=== PATIENT | male | born 2000 | race Two or more races ===

== ENCOUNTER 2025-05-11 18:11 | Emergency (ER) | payer OTHER ==
[~2025-05-11] VITALS: Ht 185.4 cm; Wt 102.0 kg
[2025-05-11 20:02] VITALS: BP 148/91; PULSE 67; RESP 18; TEMP 97.9; O2SAT 95
[2025-05-11] MEDS: TETRACAINE HCL 0.5% OPTH(EYE) SOLN 4ML RIGHTEYE ONE (20:21)
[2025-05-11] MEDS: FLUORESCEIN SOD OPTH TEST STRIP RIGHTEYE ONE (20:21)
--- NOTE | 2025-05-11 20:43 | ED.PDOC ---
Eye-HPI HPI Comments 25 year old male presents to ER with right eye complaint x 1 day. Patient states that a "panel popper tool" hit him in his right upper eyelid at 2:45 p.m. prior to arrival to ER when he was using the tool to take a part off a car and has since been experiencing 3/10 pain to right upper eyelid and redness to right eye. He denies the tool poking him in his eye and denies any blurred vision/vision changes to right eye. Patient presents to ER ambulatory on a rrival, with steady gait, with a 1cm abrasion noted to right upper eyelid without bleeding and subconjunctival injection noted to right eye. Denies any further symptoms/complaints Chief Complaint: Eye Problem Time Seen by MD: 19:12 Primary Care Provider: NONE Reviewed Notes: Nurses Notes, Medications, Allergies Allergies: Coded Allergies: Amoxicillin (Verified Allergy, Unknown, 05/11/25) Home Meds Active Scripts Erythromycin (Erythromycin) 5 Mg/Gm Oin, 1 MG OP 6XD for 7 Days, #1 OIN 0 Refills Prov:IVAN ROWAN 05/11/25 Information Source: Patient Mode of Arrival: Ambulatory Past Medical History PAST MEDICAL HISTORY: Denies Surgical History: Denies all surgeries Family History Family History: Unknown Social History Smoker: Non-Smoker Alcohol: Denies ETOH Use Drugs: Denies Drug Use Lives In: Home Constitutional: denies: chills, diaphoresis, fatigue, fever, malaise, sweats, weakness, others EENTM: reports: others (As stated in HPI) Respiratory: denies: cough, hemoptysis, orthopnea, SOB at rest, shortness of breath, SOB with excertion, stridor, wheezing, others Cardiovascular: denies: chest pain, dizzy spells, diaphoresis, Dyspnea on exertion, edema, irregular heart beat, left arm pain, lightheadedness, palpitations, PND, syncope, others Gastrointestinal: denies: abdomen distended, abdominal pain, blood streaked bowels, constipated, diarrhea, dysphagia, difficulty swallowing, hematemesis, m felice, nausea, poor appetite, poor fluid intake, rectal bleeding, rectal pain, vomiting, others Genitourinary: denies: burning, dysuria, flank pain, frequency, hematuria, incontinence, penile discharge, penile sore, pain, testicle pain, testicle swelling, urgency, others Neurological: denies: dizziness, fainting, headache, left sided numbness, left sided weakness, numbness, paresthesia, pre-existing deficit, right sided numbness, right sided weakness, seizure, speech problems, tingling, tremors, weakness, others Musculoskeletal: denies: back pain, gout, joint pain, joint swelling, muscle pain, muscle stiffness, neck pain, others Integumetry: reports: others (As stated in HPI) Allergic/Immunocompromised: denies: Difficulty Healing, Frequent Infections, Hives, Itching, others Hematologic/Lymphatic: denies: anemia, blood clots, easy bleeding, easy bruising, swollen glands, others Endocrine: denies: excessive hunger, excessive sweating, excessive thirst, excessive urination, flushing, intolerance to cold, intolerance to heat, unexplained weight gain, unexplained weight loss, others Psychiatric: denies: anxiety, bipolar disorder, depression, hopeless, panic disorder, schizophrenia, sleepless, suicidal, others Physical Exam General Appearance: No Apparent Distress HEENT: PERRL/EOMI, Pharynx Normal, TMs Normal, Other ([place] examination right eye- subconjunctival injection and corneal abrasion noted, no drainage from right eye appreciated. 1 cm abrasion also noted to right upper eyelid without bleeding. Visual acuity 20/25 right eye, 20/25 left eye and 20/20 using both eyes) Neck: Full Range of Motion, Non-Tender, Normal Respiratory: Chest Non-Tender, Lungs Clear, No Accessory Muscle Use, No Respiratory Distress, Normal Breath Sounds Cardiovascular: No Murmur, No Gallop, Regular Rate/Rhythm Breast Exam: Deferred Gastrointestinal: NOT DONE Genitalia: Deferred Pelvic: Deferred Rectal: Deferred Extremities: Normal capillary refill, Normal range of motion Neurologic: Alert, senior project engineer II-XII nml as Tested, No Motor Deficits, Normal Affect, Normal Mood, No Sensory Deficits Cerebellar Function: Normal Reflexes: Normal Skin: Dry, Warm Lymphatic: No Adenopathy Was a procedure done? Was a procedure done?: No Sedation Sedation?: No EENT DIFF Eye: Corneal Ulceration, Foreign Body-Corneal, Globe Rupture, Orbital Cellulits, Periorbital Cellulits X-Ray, Labs, Meds, VS Vital Signs Date Time Temp Pulse Resp B/P (MAP) Pulse Ox O2 Delivery O2 Flow Rate FiO2 05/11/25 20:02 Room Air* 0 21 05/11/25 20:02 97.9 67 18 148/91 (110) 95 97.9 05/11/25 19:10 97.9 67 18 148/91 (110) 95 97.9 Current Medications Medications (Trade) Dose Ordered Sig/Brian Route Start Time Stop Time Status Last Admin Fluorescein Sodium (Ful-Yuko) 1 mg ONCE ONCE RIGHTEYE 05/11/25 20:15 05/11/25 20:17 DC 05/11/25 20:21 Tetracaine HCl (Tetracaine 0.5% Opth Soln) 1 drop ONCE ONCE RIGHTEYE 05/11/25 20:15 05/11/25 20:17 DC 05/11/25 20:21 Fluorescein stain ophthalmic ordered Tetracaine ophthalmic ordered Workman's comp paperwork filled out Advised to follow up with Ophthalmology in 3-4 days if symptoms do not improve Advised to follow up with PCP and workman's comp PCP in 1-2 days Patient verbalized understanding and agreeable with current plan of care Advised to return to ER immediately if symptoms worsen Time of 1ST Reevaluation: 20:20 Reevaluation 1ST: N/A Patient Education/Counseling: Diagnosis, Treatment, Prognosis, Need For Follow Up Family Education/Counseling: No Family Present SEPSIS Sepsis Screen Date sepsis recognized/suspect: May 11, 2025 Time Sepsis recognized/suspect: 1642 Recent Procedure: No On Antibiotic Therapy: No Respiratory Rate >20: No Heart Rate >90: No Temp<36 C (96.8 F) or >38.3 C: No SBP <90 or MAP <65 mmHG: No New Acute Mental Status Change: No Is the patient on CPAP, BIPAP,: No Orders/Vitals/Labs Vital Signs Date Time Temp Pulse Resp B/P (MAP) Pulse Ox O2 Delivery O2 Flow Rate FiO2 05/11/25 20:02 Room Air* 0 21 05/11/25 20:02 97.9 67 18 148/91 (110) 95 97.9 05/11/25 19:10 97.9 67 18 148/91 (110) 95 97.9 Medications Medications Dose Ordered Sig/Brian Route Start Time Stop Time Status Last Admin Dose Admin Fluorescein Sodium 1 mg ONCE ONCE RIGHTEYE 05/11/25 20:15 05/11/25 20:17 DC 05/11/25 20:21 Tetracaine HCl 1 drop ONCE ONCE RIGHTEYE 05/11/25 20:15 05/11/25 20:17 DC 05/11/25 20:21 Departure 1 Departure Time of Disposition: 20:52 Impression: Primary Impression: Abrasion of eyelid, right Qualified Codes: S00.211A - Abrasion of right eyelid and periocular area, initial encounter Additional Impression: Corneal abrasion Qualified Codes: S05.01XA - Injury of conjunctiva and corneal abrasion without foreign body, right eye, initial encounter Disposition: HOME / SELF CARE / HOMELESS Condition: Stable e-Prescriptions Erythromycin (Erythromycin) 5 Mg/Gm Oin 1 MG OP 6XD for 7 Days, #1 OIN 0 Refills Prov: IVAN ROWAN 05/11/25 Discharged With: Friend Critical Care Note Critical Care Time?: No Stability Stability form required: No Heart Score Heart Score: Heart Score Response (Comments) Value History N/A 0 EKG N/A 0 Age N/A 0 Risk Factors N/A 0 Troponin N/A 0 Total 0 IVAN ROWAN May 11, 2025 20:43
[2025-05-11] MEDS ORDERED: ERY05OO OP (20:56)
== END 2025-05-11 21:09 | disposition home or self-care (01) ==
LOC: ER 18:11
DX: S00.211A Abrasion of right eyelid and periocular area, initial encounter (principal); Z88.0 Allergy status to penicillin; Z79.899 Other long term (current) drug therapy; W22.8XXA Striking against or struck by other objects, initial encounter; Y93.89 Activity, other specified; Y92.89 Other specified places as the place of occurrence of the external cause; Y99.8 Other external cause status